=== PATIENT | female | born 1975 | race American Indian/Alaskan Native ===

== ENCOUNTER 2016-12-10 16:05 | Emergency (ER) | payer MEDICAID ==
[2016-12-10 16:19] VITALS: BMI 27.2
[2016-12-10] MEDS ORDERED: TDAP Vaccine 0.5 mL Syr IM ONE (16:19)
[2016-12-10] MEDS ORDERED: Amoxicillin-Clav 500-125 mg Tab PO STA (16:19)
--- NOTE | 2016-12-10 16:26 | ED PDOC ---
Lower Extremity Pain/Injury Time Seen by Provider: 12/10/16 16:11 Chief Complaint (Provider): Swelling to left ankle History Per: Patient History/Exam Limitations: no limitations Onset/Duration Of Symptoms: Days (3) Current Symptoms Are (Timing): Still Present Severity: Moderate Additional Complaint(s): The pt is a 41yo female, presents to the ED for evaluation of swelling and erythema to her left ankle for the past 4 days. Pt reports 3 days ago, she put on her boots and felt as if something bit her left ankle. She reports noticing 2 pimple like masses which she proceeded to poke with a needle, states clear fluid drained form both puncture sites. Pt reports she worked out the next day and the day after she noticed pain to her left ankle. Pt reports today she noticed swelling and erythema which has worsened, prompting her visit to the ED. Pt denies any fever or Hx of DM. She offers no additional medical complaints. - Ankle/Foot Description Of Injury: Other (swollen s/p possible bite) Past Medical History Reviewed: Historical Data, Nursing Documentation, Vital Signs - Medical History PMH: No Chronic Diseases Denies: Diabetes - Surgical History Surgical History: No Surg Hx - Family History Family History: States: Unknown Family Hx - Home Medications Home Medications: Ambulatory Orders Medication Instructions Recorded Amoxicillin/Clavulanate [Augmentin 1 tab PO Q8 #30 tab 12/10/16 500 MG-125 MG] - Allergies Allergies/Adverse Reactions: Allergies Allergy/AdvReac Type Severity Reaction Status Date / Time No Known Allergies Allergy Verified 12/10/16 16:19 Review of Systems ROS Statement: Except As Marked, All Systems Reviewed And Found Negative Constitutional: Negative for: Fever Musculoskeletal: Positive for: Other (left ankle swelling and pain) Neurological: Negative for: Weakness, Numbness Physical Exam - Reviewed Nursing Documentation Reviewed: Yes Vital Signs Reviewed: Yes - Physical Exam Appears: Positive for: Well, Non-toxic, No Acute Distress Head Exam: Positive for: ATRAUMATIC, NORMAL INSPECTION, NORMOCEPHALIC Skin: Positive for: Normal Color Eye Exam: Positive for: Normal appearance Cardiovascular/Chest: Positive for: Regular Rate, Rhythm Respiratory: Negative for: Respiratory Distress Pulses-Dorsalis Pedis (L): 2+ Pulses-Dorsalis Pedis (R): 2+ Extremity: Positive for: Capillary Refill (< 2 seconds), Swelling (mild swelling to left lateral malleolus extending into left dorsum of foot. no streaking.), Other (1 scab with surrounding erythema to left lateral malleolus. intact vesicles noted with surrounding erythema.) Medical Decision Making Medical Decision Making: Time: 1622 Impression: Left ankle swelling s/p possible bug bite Plan: -- Augmentin 1 tab PO -- TDAP booster --Reassess Scribe Attestation: All records were documented by Jojo Botello, acting as a Scribe for KRAIG Pike. Provider Scribe Attestation: All medical record entries made by the Scribe were at my direction and personally dictated by me. I have reviewed the chart and agree that the record accurately reflects my personal performance of the history, physical exam, medical decision making, and the department course for this patient. I have also personally directed, reviewed, and agree with the discharge instructions and disposition. Disposition - Clinical Impression Clinical Impression: Cellulitis - Patient ED Disposition Is Patient to be Admitted: No - Disposition Disposition: Routine/Home Disposition Time: 18:47 Condition: STABLE Additional Instructions: Follow up with your PMD in 2 days for wound check. Return to ED immediately if symptoms worsen or fever develops. Prescriptions: Amoxicillin/Clavulanate [Augmentin 500 MG-125 MG] 1 tab PO Q8 #30 tab Instructions: Cellulitis (ED)
== END 2016-12-10 16:44 | disposition home or self-care (01) ==
LOC: H.ER 16:05
DX: L03.116 Cellulitis of left lower limb (principal); Z23 Encounter for immunization